=== PATIENT | male | born 1970 | race African-American/Black ===

== ENCOUNTER 2023-07-16 09:03 | Day surgery (SDC) | payer OTHER ==
[~2023-07-16] VITALS: Ht 185.4 cm; Wt 70.3 kg
[2023-07-16] MEDS ORDERED: fentaNYL citrate 0.05 MG/ML VIAL ONE (10:40)
[2023-07-16] MEDS ORDERED: LIDOCAINE 2% 100 MG/5 ML UJET TP ONE ×2 (10:41→11:40)
[2023-07-16] MEDS ORDERED: fentaNYL citrate 0.05 MG/ML VIAL IVP ONE (11:40)
== END 2023-07-16 12:30 | disposition home or self-care (01) ==
LOC: MDS 09:03 → MMU 09:06 → MDS 12:30
PROVIDERS: ATTEND Internal Medicine Gastroenterology
DX: Z12.11 Encounter for screening for malignant neoplasm of colon (principal); M41.9 Scoliosis, unspecified
CPT/HCPCS: 45378; J3010